=== PATIENT | male | born 1965 | race Caucasian/White ===

== ENCOUNTER 2021-09-06 01:07 | Observation (INO) ==
[2021-09-06] MEDS ORDERED: Ondansetron 4 MG/2 ML VIAL IVP PRN (03:19)
[2021-09-06] MEDS ORDERED: Acetaminophen 325 MG TABLET PO PRN (03:19)
[2021-09-06] MEDS ORDERED: Melatonin 3 MG TABLET PO PRN (03:19)
[2021-09-06] MEDS ORDERED: Naloxone 0.4 MG/ML INJ IVP PRN (03:19)
[2021-09-06] MEDS: Ringers Solution, Lactated 1,000 ML IVC SCH ×2 (03:55→12:01)
[2021-09-06] MEDS ORDERED: *HR* Promethazine 25 MG/ML VIAL IM PRN (04:33)
[2021-09-06] MEDS ORDERED: Dextrose Gel 15 GM/37.5 ML TUBE PO PRN ×2 (04:34)
[2021-09-06] MEDS ORDERED: *HR* Dextrose 50 % in Water (Syg) 50 ML SYRINGE IVP PRN (04:34)
[2021-09-06] MEDS ORDERED: D5% in Water 1,000 ML IVC PRN (04:34)
[2021-09-06 07:16] LABS: Hematocrit 33.4 % (37.5-50.1); Hemoglobin 11.6 g/dL (12.9-16.9); Mean Corpuscular HGB Conc 34.7 g/dL (31.6-35.5); Mean Corpuscular Hemoglobin 28.7 pg (28.0-33.3); Mean Corpuscular Volume 82.7 fL (83.0-100.0); Mean Platelet Volume 10.7 fL (9.4-12.4); Platelet Count 212 K/mcL (140-400); Red Blood Count 4.04 M/mcL (4.19-5.50); Red Cell Distribution Width 12.8 % (11.5-14.5); White Blood Count 6.2 K/mcL (4.3-11.1)
[2021-09-06 07:37] LABS: INR 3.5; Prothrombin Time 38.7 Seconds (9.4-12.1)
[2021-09-06 07:45] LABS: BUN/Creatinine Ratio 13 (6-26); Blood Urea Nitrogen 14 mg/dL (6-20); Calcium 9.1 mg/dL (8.6-10.3); Carbon Dioxide 21 mEq/L (23-29); Chloride 98 mEq/L (98-107); Glucose 85 mg/dL (70-105); Magnesium 1.7 mg/dL (1.6-2.6); Osmolality,Calculated 274 (280-300); Phosphorous 4.3 mg/dL (2.7-4.5); Potassium 3.5 mEq/L (3.5-5.1); Sodium 132 mEq/L (136-145); eGFR For African Americans > 60 (> 60); eGFR For Non-African Americans > 60 (> 60)
[2021-09-06] MEDS ORDERED: *HR* Rivaroxaban 10 MG TABLET PO SCH (17:00)
[2021-09-06] MEDS: *HR* Rivaroxaban 10 MG TABLET PO SCH (17:41)
[2021-09-06] MEDS: Ondansetron 4 MG/2 ML VIAL IVP SCH (17:42)
[2021-09-06] MEDS: 0.9 % Sodium Chloride 1,000 ML IVC SCH (20:24)
[2021-09-07] MEDS: Ondansetron 4 MG/2 ML VIAL IVP SCH ×5 (00:28→23:34)
[2021-09-07 08:22] LABS: Basophils % 0.7 %; Eosinophils # 0.2 K/mcL (0.0-0.6); Eosinophils % 4.5 %; Hematocrit 31.2 % (37.5-50.1); Hemoglobin 10.6 g/dL (12.9-16.9); Immature Granulocytes % 0.2 % (0-4); Lymphocytes # 1.7 K/mcL (0.6-4.6); Lymphocytes % 39.5 %; Mean Corpuscular Hemoglobin 28.6 pg (28.0-33.3); Mean Corpuscular Volume 84.1 fL (83.0-100.0); Mean Platelet Volume 10.9 fL (9.4-12.4); Monocytes # 0.4 K/mcL (0.0-1.3); Monocytes % 10.2 %; Neutrophils # 1.9 K/mcL (1.6-8.9); Platelet Count 177 K/mcL (140-400); Red Blood Count 3.71 M/mcL (4.19-5.50); Red Cell Distribution Width 12.7 % (11.5-14.5); Segmented Neutrophils % 44.9 %; White Blood Count 4.2 K/mcL (4.3-11.1)
[2021-09-07 09:48] LABS: BUN/Creatinine Ratio 10 (6-26); Blood Urea Nitrogen 10 mg/dL (6-20); Calcium 8.7 mg/dL (8.6-10.3); Carbon Dioxide 25 mEq/L (23-29); Chloride 101 mEq/L (98-107); Glucose 82 mg/dL (70-105); Magnesium 1.5 mg/dL (1.6-2.6); Osmolality,Calculated 276 (280-300); Potassium 3.3 mEq/L (3.5-5.1); Sodium 134 mEq/L (136-145); eGFR For African Americans > 60 (> 60); eGFR For Non-African Americans > 60 (> 60)
[2021-09-07] MEDS: Fluticasone Propionate Nasal 50 MCG/SPRAY BOTTLE NS SCH (10:12)
[2021-09-07] MEDS: 0.9 % Sodium Chloride 1,000 ML IVC SCH (10:13)
[2021-09-07] MEDS ORDERED: Potassium Chloride Elixir 20 MEQ/15 ML UDC PO ONE (10:14)
[2021-09-07] MEDS: *HR* Rivaroxaban 10 MG TABLET PO SCH (18:41)
[2021-09-08] MEDS: Ondansetron 4 MG/2 ML VIAL IVP SCH ×2 (06:14→13:02)
[2021-09-08 06:56] VITALS: BP 112/65; PULSE 69; RESP 17; TEMP 98.2; O2SAT 96
[2021-09-08 07:57] LABS: BUN/Creatinine Ratio 7 (6-26); Blood Urea Nitrogen 7 mg/dL (6-20); Calcium 8.3 mg/dL (8.6-10.3); Carbon Dioxide 20 mEq/L (23-29); Chloride 104 mEq/L (98-107); Glucose 77 mg/dL (70-105); Magnesium 1.7 mg/dL (1.6-2.6); Osmolality,Calculated 277 (280-300); Potassium 3.4 mEq/L (3.5-5.1); Sodium 135 mEq/L (136-145); eGFR For African Americans > 60 (> 60); eGFR For Non-African Americans > 60 (> 60)
[2021-09-08] MEDS: Fluticasone Propionate Nasal 50 MCG/SPRAY BOTTLE NS SCH (10:22)
== END 2021-09-08 16:04 | disposition home or self-care (01) ==
LOC: INPPIK
PROVIDERS: ADMIT Internal Medicine; ATTEND Internal Medicine